=== PATIENT | female | born 1990 | race Hispanic/Latino ===

== ENCOUNTER 2023-11-06 07:02 | Day surgery (SDC) | payer OTHER ==
[2023-11-01 10:37] LABS: BASOPHILS # (AUTO) 0.04 K/uL (0.00-0.20); BASOPHILS % (AUTO) 0.6 % (0.0-5.0); EOSINOPHILS # (AUTO) 0.18 K/uL (0.00-0.70); EOSINOPHILS % (AUTO) 2.8 % (0.0-8.0); IMMATURE GRANULOCYTE ABSOLUTE 0.02 K/uL (0-1); LYMPHOCYTES # (AUTO) 2.3 K/uL (1.0-4.8); MEAN CORPUSCULAR HEMOGLOBIN 30.6 pg (27.0-33.0); MONOCYTES # (AUTO) 0.4 K/uL (0.1-1.0); MONOCYTES % (AUTO) 6.1 % (3.0-13.0); NEUTROPHILS # (AUTO) 3.6 K/uL (1.8-7.7); NEUTROPHILS % (AUTO) 55.2 % (40.0-77.0); PLATELET COUNT (AUTO) 234 K/uL (130-400); RED CELL DISTRIBUTION WIDTH 11.7 % (11.0-15.5); WHITE BLOOD COUNT (AUTO) 6.5 K/uL (4.8-10.8)
[2023-11-01 10:49] VITALS: BP 136/88; PULSE 85; RESP 18
[2023-11-01 10:50] LABS: CREATININE 0.6 mg/dL (0.5-1.0); POTASSIUM 4.5 mmol/L (3.5-5.1)
[~2023-11-06] VITALS: Ht 152.4 cm; Wt 82.2 kg
[2023-11-06] VITALS (14 sets, daily range): BP systolic 102–148; BP diastolic 61–91; PULSE 69–110; RESP 14–18
[~2023-11-06 07:02] MED LIST: LEVO25TA9 PO; METF-444 PO
[2023-11-06] MEDS ORDERED: CEFAZOLIN SODIUM 2 GM VIAL ONE (07:14)
[2023-11-06] MEDS ORDERED: DEXAMETHASONE SOD PHOSPHATE 10MG/ML 1ML VIAL ONE (07:23)
[2023-11-06] MEDS ORDERED: LIDOCAINE PF 100MG/5ML (2%) SYRINGE 5ML ONE (07:23)
[2023-11-06] MEDS ORDERED: ONDANSETRON 4MG INJ ONE (07:24)
[2023-11-06] MEDS ORDERED: MIDAZOLAM HCL 1 MG/ML 2ML VIAL ONE (07:24)
[2023-11-06] MEDS ORDERED: ROCURONIUM BROMIDE 10MG/1ML 5ML VL ONE (07:24)
[2023-11-06] MEDS ORDERED: SUCCINYLCHOLINE CHLORIDE 20 MG/ML 10 ML VIAL ONE (07:24)
[2023-11-06] MEDS ORDERED: PROPOFOL 10 MG/ML 20ML VIAL IV ONE (07:24)
[2023-11-06] MEDS ORDERED: FENTANYL CITRATE PF 50 MCG/1 ML 2ML VIAL ONE ×2 (07:24→08:25)
[2023-11-06] MEDS ORDERED: GLYCOPYRROLATE 0.2 MG/ML 5 ML VIAL ONE (07:24)
[2023-11-06] MEDS: KETOROLAC 30MG VIAL (30MG/ML) ONE (09:19)
[2023-11-06] MEDS: LACTATED RINGERS 1000ML 1,000 ML IV ONE (09:54)
== END 2023-11-06 10:29 | disposition home or self-care (01) ==
LOC: DAH 07:02
PROVIDERS: ATTEND Obstetrics & Gynecology
DX: N93.9 Abnormal uterine and vaginal bleeding, unspecified (principal); N84.0 Polyp of corpus uteri; K21.9 Gastro-esophageal reflux disease without esophagitis; E66.9 Obesity, unspecified; Z79.899 Other long term (current) drug therapy; Z68.32 Body mass index [BMI] 32.0-32.9, adult
CPT/HCPCS: 80048; 84703; 85025; 36415 ×2; 58558; 86850; 86900; 86901; 82948 ×2; 81025; 88305; A6260; J7030; A4351; A4355; J7120; J3010 ×2; J1100; J0330; J3490 ×2; J2001; J2250; J2704; J2405; J1885; J0690; A4215; A4223; A4213; A4222; A4221; A4663; A4600